=== PATIENT | female | born 1975 | race Caucasian/White ===

== ENCOUNTER 2021-05-11 13:02 | Emergency (ER) | payer OTHER ==
[~2021-05-11] VITALS: Ht 172.7 cm; Wt 56.0 kg
[2021-05-11 13:31] VITALS: BP 123/76
[2021-05-11] MEDS ORDERED: SULF1TAB24 PO (14:35)
--- NOTE | 2021-05-11 14:35 | PHYS DOC ---
Past History Past Surgical History: Other Additional Past Surgical Histo: Back, thyroidectomy Alcohol Use: None General Adult EDM: Chief Complaint: INSECT BITE HPI: HPI: Patient is a 45-year-old female coming in for evaluation of swelling to her right hand. Patient states yesterday morning she was stung by wasp on the dorsal base of her right third finger. Patient initially had localized reaction but is today noticed redness spreading down her hand as well as swelling. Fran forte also states that she was seen at the urgent care earlier today and prescribed a Medrol Dosepak and Keflex. States she took her first dose of each medication about 2 hours prior to arrival. Review of Systems: Review of Systems: All other systems within normal limits except for as noted in the HPI Current Medications: Current Meds: Current Medications Medications (Trade) Dose Ordered Sig/Rocio Start Time Stop Time Status Last Admin Dose Admin Ceftriaxone Sodium (Rocephin Im) 1,000 mg 1X ONCE 05/11/21 14:15 05/11/21 14:16 UNV Diphtheria/ Pertussis/Tetanus Vacc (ADACEL TDap SYRINGE) 0.5 ml ONCE ONCE 05/11/21 14:15 05/11/21 14:16 UNV Allergies: Allergies: Allergies Coded Allergies Type Severity Reaction Last Updated Verified No Known Drug Allergies 05/11/21 No Physical Exam: PE: Constitutional: Well developed, well nourished, no acute distress, non-toxic appearance. [] HENT: Normocephalic, atraumatic, bilateral external ears normal, nose normal. [] Eyes: PERRLA, conjunctiva normal, no discharge. [] Neck: No rigidity, supple, no stridor. [] Cardiovascular: Regular rate and rhythm, brisk cap refill [] Lungs & Thorax: Non labored symmetric respirations, no tachypnea or respiratory distress [] Abdomen: Soft, nondistended. Skin: Warm, dry, no erythema, no rash. [] Back: Unremarkable Extremities: No deformities, range of motion grossly intact, no lower extremity edema. Right hand erythema and swelling, no fluctuance or drainage. Range of motion intact. [] Neurologic: Alert and oriented X 3, no focal deficits noted. [] Psychologic: Affect normal, judgement normal, mood normal. [] Current Patient Data: Vital Signs: Vital Signs Date Time Temp Pulse Resp B/P (MAP) Pulse Ox O2 Delivery O2 Flow Rate FiO2 05/11/21 13:31 98.3 89 16 123/76 99 Room Air EKG: EKG: [] Radiology/Procedures: Radiology/Procedures: [] Heart Score: C/O Chest Pain: No Risk Factors: Risk Factors: DM, Current or recent (<one month) smoker, HTN, HLP, family history of CAD, obesity. Risk Scores: Score 0 - 3: 2.5% MACE over next 6 weeks - Discharge Home Score 4 - 6: 20.3% MACE over next 6 weeks - Admit for Clinical Observation Score 7 - 10: 72.7% MACE over next 6 weeks - Early Invasive Strategies Course & Med Decision Making: Course & Med Decision Making Pertinent Labs and Imaging studies reviewed. (See chart for details) [] Tetanus updated, just discussed return precautions. Dragon Disclaimer: Kaushikon Disclaimer: This electronic medical record was generated, in whole or in part, using a voice recognition dictation system. Departure Departure: Impression: Primary Impression: Cellulitis of hand, right Disposition: 01 HOME / SELF CARE / HOMELESS Condition: STABLE Referrals: BRUCE SCHMITZ (PCP) Patient Instructions: Cellulitis Scripts Sulfamethoxazole/Trimethoprim (BACTRIM DS TABLET) 1 Each Tablet 1 TAB PO BID for antibiotic for 7 Days, #14 TAB 0 Refills Prov: KYRA MCCURDY MD 05/11/21 KYRA MCCURDY MD May 11, 2021 14:35
[2021-05-11] MEDS ORDERED: DIPH,PERTUSS(ACELL),TET VAC/PF 0.5 ML SYRINGE. VAX IM ONE (14:45)
[2021-05-11] MEDS ORDERED: cefTRIAXone IM 1 GM VIAL IM ONE (14:45)
[2021-05-11] MEDS ORDERED: SMZ/TMP 800/160MG TABLET. PO ONE (14:45)
== END 2021-05-11 14:49 | disposition home or self-care (01) ==
LOC: ER 13:02
DX: L03.113 Cellulitis of right upper limb (principal)
CPT/HCPCS: 90471; 90715; 96372; 99284; J0696

== ENCOUNTER 2021-12-05 17:26 | Emergency (ER) | payer OTHER ==
[~2021-12-05] VITALS: Ht 160 cm; Wt 57.3 kg
[~2021-12-05 17:26] MED LIST: SULF1TAB24 PO
[2021-12-05] MEDS ORDERED: KETOROLAC 60 MG/2 ML VIAL. IM ONE ×2 (18:05→18:15)
[2021-12-05] MEDS ORDERED: ORPHENADRINE CITRATE 60 MG/2 ML VIAL. ONE (18:05)
--- NOTE | 2021-12-05 18:10 | PHYS DOC ---
Past History Additional Past Medical Histor: back pain Past Surgical History: Lumbar Laminectomy Additional Past Surgical Histo: L4/L5 1991 Alcohol Use: None General Adult EDM: Chief Complaint: BACK PAIN - NO INJURY HPI: HPI: Patient is a 46-year-old female that presents today with low back pain. 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 She said that she had to lay down on the floor in the kitchen and she slowly crawled to the couch she said she was able to lie on the couch for a while with a heating pad, and she also took some muscle relaxants that she had at home and she said they did help, but she says the pain is severe and wanted to get checked out. Patient does have a past medical history of a laminectomy in the past. Patient denies any difficulty with voiding or loss of bowel or bladder control. Review of Systems: Review of Systems: Constitutional: Denies fever or chills Eyes: Denies change in visual acuity HENT: Denies nasal congestion or sore throat Respiratory: Denies cough or shortness of breath Cardiovascular: Denies chest pain or edema GI: Denies abdominal pain, nausea, vomiting, bloody stools or diarrhea : Denies dysuria Musculoskeletal: Low back pain Integument: Denies rash Neurologic: Denies headache, focal weakness or sensory changes Endocrine: Denies polyuria or polydipsia Lymphatic: Denies swollen glands Psychiatric: Denies depression or anxiety Current Medications: Current Meds: Current Medications Medications (Trade) Dose Ordered Sig/[facility] Start Time Stop Time Status Last Admin Dose Admin Ketorolac Tromethamine (Toradol Im) 60 mg STK-MED ONCE 12/05/21 18:05 12/05/21 18:06 DC Orphenadrine Citrate (Norflex) 60 mg STK-MED ONCE 12/05/21 18:05 12/05/21 18:06 DC Allergies: Allergies: Allergies Coded Allergies Type Severity Reaction Last Updated Verified No Known Drug Allergies 12/05/21 No Physical Exam: PE: Constitutional: Well developed, well nourished, mild distress, non-toxic appearance. [] HENT: Normocephalic, atraumatic, bilateral external ears normal, oropharynx moist, no oral exudates, nose normal. [] Eyes: PERRLA, EOMI, conjunctiva normal, no discharge. [] Neck: Normal range of motion, no tenderness, supple, no stridor. [] Cardiovascular:Heart rate regular rhythm, no murmur [] Lungs & Thorax: Bilateral breath sounds clear to auscultation [] Abdomen: Bowel sounds normal, soft, no tenderness, no masses, no pulsatile masses. [] Skin: Warm, dry, no erythema, no rash. [] Back: Tenderness noted along the right side of the lower spine area, no sensory deficits distal to the injury, patient is able to ambulate with a steady gait, no foot drop noted. Straight leg raise is negative Extremities: No tenderness, no cyanosis, no clubbing, ROM intact, no edema. [] Neurologic: Alert and oriented X 3, normal motor function, normal sensory function, no focal deficits noted. [] Psychologic: Affect normal, judgement normal, mood normal. [] Current Patient Data: Vital Signs: Vital Signs Date Time Temp Pulse Resp B/P (MAP) Pulse Ox O2 Delivery O2 Flow Rate FiO2 12/05/21 17:57 98.2 70 18 117/82 (94) 99 Room Air EKG: EKG: [] Radiology/Procedures: Radiology/Procedures: [] Heart Score: C/O Chest Pain: N/A Risk Factors: Risk Factors: DM, Current or recent (<one month) smoker, HTN, HLP, family history of CAD, obesity. Risk Scores: Score 0 - 3: 2.5% MACE over next 6 weeks - Discharge Home Score 4 - 6: 20.3% MACE over next 6 weeks - Admit for Clinical Observation Score 7 - 10: 72.7% MACE over next 6 weeks - Early Invasive Strategies Course & Med Decision Making: Course & Med Decision Making Pertinent Labs and Imaging studies reviewed. (See chart for details) 1820 patient is not having any caudal equine syndrome symptoms at this time, patient will be sent home to follow-up with her primary care physician tomorrow for further management of her back pain. Patient will be given a prescription for nonsteroidal anti-inflammatory, hydrocodone and Flexeril. Patient is to ice 20 minutes on 3-4 times daily, patient is encouraged to return to the emergency department if she has any loss of bowel or bladder control or inability to start her stream. Dragon Disclaimer: Dragjanes Disclaimer: This electronic medical record was generated, in whole or in part, using a voice recognition dictation system. Departure Departure: Impression: Primary Impression: Back pain Qualified Codes: M54.50 - Low back pain, unspecified Disposition: HOME / SELF CARE / HOMELESS Condition: STABLE Referrals: BRUCE SCHMITZ (PCP) Patient Instructions: Back Pain, Adult Additional Instructions: Hydrocodone 1 tablet every 6 hours as needed for moderate to severe pain. Use with caution may cause drowsiness and constipation Flexeril 1 tablet every 8 hours as needed for muscle spasms, may cause drowsiness DICLOFENAC 1 tablet twice daily, take with food may cause stomach upset Ice 20 minutes on 3-4 times daily Return to the emergency department you have a loss of bowel or bladder control, numbness or tingling in your legs, or inability to walk Follow-up with your primary care physician this week for further management of your back pain. Scripts Hydrocodone Bit/Acetaminophen (HYDROCODONE-APAP 5-325 ) 1 Each Tablet 1 TAB PO PRN Q6HRS PRN for PAIN, #14 TAB 0 Refills Prov: YASMEEN BOYCE INTERACTIVE [employer] MARKETING STRATEGIST 12/05/21 Cyclobenzaprine Hcl (CYCLOBENZAPRINE HCL) 10 Mg Tablet 1 TAB PO TID PRN PRN for PAIN, #20 TAB Prov: YASMEEN BOYCE INTERACTIVE [employer]IA MARKETING STRATEGIST 12/05/21 Diclofenac Sodium (DICLOFENAC SODIUM) 50 Mg Tablet. 1 TAB PO BID for back pain, #30 TAB 1 Refill Prov: YASMEEN BOYCE INTERACTIVE MEDIA MARKETING STRATEGIST 12/05/21 YASMEEN BOYCE INTERACTIVE MEDIA MARKETING STRATEGIST Dec 05, 2021 18:10
[2021-12-05] MEDS ORDERED: ORPHENADRINE CITRATE 60 MG/2 ML VIAL. IM ONE (18:15)
[2021-12-05] MEDS ORDERED: DICL50TA4 PO (18:29)
[2021-12-05] MEDS ORDERED: CYCL10TA19 PO (18:29)
[2021-12-05] MEDS ORDERED: HYDR-2155 PO (18:29)
[2021-12-05 18:35] VITALS: BP 114/77
== END 2021-12-05 18:35 | disposition home or self-care (01) ==
LOC: ER 17:26
DX: M54.59 Other low back pain (principal)
CPT/HCPCS: 81025; 99283